=== PATIENT | male | born 1970 | race Caucasian/White ===

== ENCOUNTER 2018-01-06 09:55 | Day surgery (SDC) | payer OTHER ==
[2018-01-05 08:40] VITALS: BMI 35.2
[~2018-01-06 09:55] MED LIST: LACTATED RINGERS 1,000 ML IV SCH
[2018-01-06 11:43] VITALS: RESP 16; TEMP 97.5
[2018-01-06] MEDS ORDERED: LIDOCAINE 1% 20 ML VIAL (10MG/ML) FOR IV START INTRADERMA ONE (11:49)
[2018-01-06] MEDS ORDERED: LIDOCAINE 1% INJ 10MG/ML (20 ML MDV) ONE (12:08)
[2018-01-06] MEDS ORDERED: GLYCOPYRROLATE 0.2 MG/ML 2 ML VIAL ONE (12:08)
[2018-01-06] MEDS ORDERED: PROPOFOL 10 MG/ML 20 ML VIAL IV ONE (12:08)
--- NOTE | 2018-01-06 12:30 | P.PCN ---
Date of Procedure: 01/06/18 Procedure(s) Performed: Brief history: Patient is a pleasant 47-year-old white male, scheduled for an elective upper endoscopy as well as colonoscopy as a part of evaluation of gastric esophageal he for symptoms and intermittent rectal bleeding. Procedure performed: Esophagogastroduodenoscopy with biopsy Colonoscopy with snare polypectomy Preoperative diagnosis: GERD Intermittent rectal bleeding Anesthesia: [facility] Procedure: After informed consent was obtained from the patient was brought into the endoscopy unit and IV sedation was administered by anesthesia under continuous monitoring. Initially upper endoscopy was done. The Olympus GF 160 video endoscope was inserted inserted into the mouth and esophagus intubated without any difficulty and was gradually advanced into the stomach and duodenum and carefully examined. The bulb and second part of the duodenum appeared normal. The scope was then withdrawn into the stomach adequately insufflated with air and upon careful examination the antrum and body, cardia and fundus appeared normal. The scope was then withdrawn into the esophagus. Small hiatal hernia noted. The GE junction was located at 38 cm to the incisors. It appeared regular with no erythema erosions or ulcerations. Rest of the esophagus appeared normal. Patient tolerated the procedure well. At this time the patient continued to remain sedation. Initial digital rectal examination was normal. Olympus CF 160 video colonoscope was then inserted into the rectum and gradually advanced to the cecum without any difficulty. Careful examination was performed as the scope was gradually being withdrawn. The prep was excellent. The cecum, ascending colon, transverse colon, appeared normal. In the descending colon there was a 5 mm sessile polyp removed by snare polypectomy. In the sigmoid colon at 30 cm from the anal verge there was a 2.5-3 cm pedunculated polyp that was removed by snare polypectomy. In the proximal rectum there was a 1 minute polyp removed by snare polypectomy. Scattered small diverticula seen. Rest of the descending colon, sigmoid colon and rectum appeared normal. Retroflexion was performed in the rectum and no lesions were noted. Patient tolerated the procedure well. Impression: 1. Upper endoscopy revealed small hiatal hernia and antral gastritis. 2. Colonoscopy revealed: a) 5 mm sessile descending colon polyp status post polypectomy b) 2.5-3 cm pedunculated distal sigmoid colon polyp status post polypectomy c) 1 cm proximal rectal polyp serous was snare polypectomy d) sigmoid diverticulosis. Recommendations: Findings of this examination were discussed with the patient as well as his family. He was advised to follow with the biopsy results. If the biopsy results he will need to have a repeat surveillance colonoscopy in 2-3 years. He will continue with Nexium 20 mg daily and follow antireflux measures.
[2018-01-06 13:00] VITALS: BP 131/85; PULSE 62
== END 2018-01-06 13:16 | disposition home or self-care (01) ==
LOC: ORWHC2ENDO 09:55
PROVIDERS: ATTEND Internal Medicine Gastroenterology
DX: D12.5 Benign neoplasm of sigmoid colon (principal); D12.8 Benign neoplasm of rectum; K63.5 Polyp of colon; K29.50 Unspecified chronic gastritis without bleeding; K21.9 Gastro-esophageal reflux disease without esophagitis; K44.9 Diaphragmatic hernia without obstruction or gangrene; K57.30 Diverticulosis of large intestine without perforation or abscess without bleeding; F32.9 Major depressive disorder, single episode, unspecified; I10 Essential (primary) hypertension; Z79.899 Other long term (current) drug therapy; Z88.8 Allergy status to other drugs, medicaments and biological substances
CPT/HCPCS: 88305; 45385; 43239; J2001; J2704

== ENCOUNTER 2019-08-16 12:39 | Emergency (ER) | payer OTHER ==
[2019-08-16 12:52] VITALS: BP 133/88; PULSE 64; RESP 16; TEMP 97.8
--- NOTE | 2019-08-16 13:56 | ED ---
Headache HPI - General Chief Complaint: Headache Stated Complaint: HEAD PAIN Time Seen by Provider: 08/16/19 13:08 Mode of arrival: ambulatory Limitations: no limitations - History of Present Illness Initial Comments: Patient is a 48-year-old male presenting to the emergency Department with complaints of a headache that started this morning. Patient states he had an headache that was in the left side of his head that he waited approximately 4/10 this morning. Patient states he does have history of headaches and migraines. Patient states he does not currently have a headache now but still wanted to be checked. Patient states he took 2 aspirin which did alleviate his symptoms. Patient states he was concerned as he thought the headache had went into his left eye a bit. Patient denies fever, chills, blurry vision, weakness, numbness and tingling. He feels okay right now. Patient denies nausea, vomiting. Patient has no other complaints at this time. Upon arrival to ER, vital signs are stable. - Related Data Home Medications Medication Instructions Recorded Confirmed Lisinopril-Hctz 20-25 mg 1 tab PO DAILY 01/05/18 08/16/19 [Zestoretic 20-25] PARoxetine [Paxil] 20 mg PO DAILY 01/05/18 08/16/19 Albuterol Sulfate [Proair Hfa] 1 - 2 puff INHALATION RT-Q6H PRN 08/16/19 08/16/19 Testosterone Cypionate 200 mg IM Q14D 08/16/19 08/16/19 [Depo-Testosterone] Allergies Allergy/AdvReac Type Severity Reaction Status Date / Time diazepam [From Valium] AdvReac Hallucinati Verified 08/16/19 13:53 ons Review of Systems ROS Statement: Those systems with pertinent positive or pertinent negative responses have been documented in the HPI. ROS Other: All systems not noted in ROS Statement are negative. Past Medical History Past Medical History: Asthma, GERD/Reflux, Hypertension History of Any Multi-Drug Resistant Organisms: None Reported Past Surgical History: Appendectomy, Orthopedic Surgery Additional Past Surgical History / Comment(s): NASAL SURGERY, RIGHT HAND SURGERY-TENDON REPAIRED Past Anesthesia/Blood Transfusion Reactions: No Reported Reaction Past Psychological History: Anxiety, Depression Smoking Status: Former smoker Past Alcohol Use History: Occasional Past Drug Use History: None Reported - Past Family History Mother Family Medical History: No Reported History General Exam - General Exam Comments Initial Comments: GENERAL: Well-appearing, well-nourished and in no acute distress. HEAD: Atraumatic, normocephalic. EYES: Pupils equal round and reactive to light, extraocular movements intact, sclera anicteric, conjunctiva are normal. ENT: TMs normal, nares patent, oropharynx clear without exudates. Moist mucous membranes. NECK: Normal range of motion, supple without lymphadenopathy or JVD. LUNGS: Breath sounds clear to auscultation bilaterally and equal. No wheezes rales or rhonchi. HEART: Regular rate and rhythm without murmurs, rubs or gallops. ABDOMEN: Soft, nontender, normoactive bowel sounds. No guarding, no rebound. No masses appreciated. EXTREMITIES: Normal range of motion, no pitting or edema. No clubbing or cyanosis. NEUROLOGICAL: Cranial nerves II through XII grossly intact. Normal speech, normal gait. PSYCH: Normal mood, normal affect. SKIN: Warm, Dry, normal turgor, no rashes or lesions noted. Limitations: no limitations Course Vital Signs 08/16/19 12:48 Temperature 97.8 F Pulse Rate 64 Respiratory 16 Rate Blood Pressure 133/88 O2 Sat by Pulse 96 Oximetry Medical Decision Making - Medical Decision Making Patient is a 48-year-old male presenting with a headache that started this morning that is intermittent. Upon arrival to ER, headache is gone. Patient states he feels okay. Patient has history of headaches and migraines and usually takes Excedrin for them. Patient took aspirin earlier which did alleviate his symptoms. Patient's exam is unremarkable today. Vital signs are normal. Discussed with patient this is most likely a normal headache or migraine. Patient is stable for discharge at this time. She is in agreement and splenic care. Return parameters were discussed with the patient he verbalizes understanding. This discussed case with Dr. Yang. Disposition Clinical Impression: Headache Disposition: HOME SELF-CARE Condition: Stable Instructions (If sedation given, give patient instructions): Acute Headache (ED) Additional Instructions: Please return to the Emergency Department if symptoms worsen or any other concerns. Follow-up with PCP as needed. May take Excedrin if headache returns. Is patient prescribed a controlled substance at d/c from ED?: No Referrals: Joce Mukherjee MD [Primary Care Provider] - 1-2 days
== END 2019-08-16 14:29 | disposition home or self-care (01) ==
LOC: EC 12:39
DX: G43.909 Migraine, unspecified, not intractable, without status migrainosus (principal); K21.9 Gastro-esophageal reflux disease without esophagitis; I10 Essential (primary) hypertension; J45.909 Unspecified asthma, uncomplicated; F41.9 Anxiety disorder, unspecified; F32.9 Major depressive disorder, single episode, unspecified; Z79.51 Long term (current) use of inhaled steroids; Z79.899 Other long term (current) drug therapy; Z87.891 Personal history of nicotine dependence
CPT/HCPCS: 99283

== ENCOUNTER → 2020-05-30 | Outpatient (CLI) | payer OTHER ==
--- NOTE | 2020-05-30 09:44 | US ---
EXAMINATION TYPE: US scrotum with doppler. DATE OF EXAM: 05/30/2020 COMPARISON: NONE CLINICAL HISTORY: 49-year-old male N50 LT TESTICULAR PAIN. Left side pain. No swelling. TECHNIQUE: Grayscale and color Doppler Duplex imaging performed of the scrotum. FINDINGS: EXAM MEASUREMENTS: TESTICLES: Right Testicle: 3.0 x 3.8 x 1.6 cm Left Testicle: 3.5 x 3.5 x 1.6 cm EPIDIDYMIS HEAD: Right Epididymis: 0.7 x 0.8 x 1.0 cm Left Epididymis: 0.8 x 0.9 x 0.6 cm Doppler performed to assess for testicular vascularity; good bilateral color flow and waveforms are s een. There is no evidence of testicular torsion. Presence of hydroceles: no Presence of varicoceles: no There is mild thickening of the scrotal skin up to 6 mm. IMPRESSION: 1. Mild scrotal skin thickening up to 6 mm. This is nonspecific. Correlate with physical exam finding s. 2. No evidence for testicular torsion or epididymoorchitis. No hydrocele.
== END | disposition home or self-care (01) ==
LOC: RADUSWWP 08:02
PROVIDERS: ATTEND Internal Medicine
DX: N50.89 Other specified disorders of the male genital organs (principal); Z88.8 Allergy status to other drugs, medicaments and biological substances
CPT/HCPCS: 76870; 93975

== ENCOUNTER → 2021-04-15 | Outpatient (CLI) | payer BC ==
--- NOTE | 2021-04-15 07:54 | US ---
EXAMINATION TYPE: US liver DATE OF EXAM: 04/15/2021 COMPARISON: NONE CLINICAL HISTORY: R94.5 abn liver function test. Abnormal liver enzymes EXAM MEASUREMENTS: Liver Length: 16.5 cm Gallbladder Wall: 0.3 cm CBD: 0.3 cm Right Kidney: 11.0 x 5.2 x 5.2 cm Pancreas: Obscured by bowel gas Liver: slightly attenuating suggestive of mild fatty infiltration. Gallbladder: no evidence of stones Evidence for sonographic Gregory's sign: no CBD: appears wnl Right Kidney: no evidence of hydronephrosis IMPRESSION: 1. The pancreas is not visualized due to overlying bowel gas. 2. Mild diffuse fatty infiltration of the liver.
== END | disposition home or self-care (01) ==
LOC: RADUSWWP 06:58
PROVIDERS: ATTEND Internal Medicine
DX: K76.0 Fatty (change of) liver, not elsewhere classified (principal)
CPT/HCPCS: 76705

== ENCOUNTER 2021-05-15 07:03 | Emergency (ER) | payer BC ==
[2021-05-15 07:34] VITALS: TEMP 98.4
[2021-05-15] MEDS ORDERED: ONDANSETRON 4 MG/2 ML VIAL IVP STA (07:54)
[2021-05-15] MEDS ORDERED: SODIUM CHLORIDE 0.9% 1,000 ML IV ONE (07:54)
--- NOTE | 2021-05-15 08:13 | ED ---
General Adult HPI - General Chief complaint: Nausea/Vomiting/Diarrhea Stated complaint: Nausea, not feeling right Time Seen by Provider: 05/15/21 07:39 Source: patient, RN notes reviewed Mode of arrival: ambulatory Limitations: no limitations - History of Present Illness Initial comments: 50-year-old male presents emergency from chief complaint of nausea. Patient states that he was started on azithromycin lasted for dental infection. Over the last few days she's had a stomach. He states he may be dehydrated no chest pain or shortness breath no symptoms and diarrhea. Patient states she is scheduled for oral surgery appointment next month. Patient denies any dysuria hematuria no other complaints. - Related Data Home Medications Medication Instructions Recorded Confirmed Lisinopril-Hctz 20-25 mg 1 tab PO DAILY 01/05/18 08/16/19 [Zestoretic 20-25] PARoxetine [Paxil] 20 mg PO DAILY 01/05/18 08/16/19 Albuterol Sulfate [Proair Hfa] 1 - 2 puff INHALATION RT-Q6H PRN 08/16/19 08/16/19 Testosterone Cypionate 200 mg IM Q14D 08/16/19 08/16/19 [Depo-Testosterone] Previous Rx's Medication Instructions Recorded Famotidine [Pepcid] 20 mg PO BID #14 tablet 05/15/21 Ondansetron Odt [Zofran Odt] 4 mg PO Q8HR PRN #10 tab 05/15/21 Penicillin V Potassium [Pen Vee K] 500 mg PO QID #28 tablet 05/15/21 Allergies Allergy/AdvReac Type Severity Reaction Status Date / Time diazepam [From Valium] AdvReac Hallucinati Verified 05/15/21 07:31 ons Review of Systems ROS Statement: Those systems with pertinent positive or pertinent negative responses have been documented in the HPI. ROS Other: All systems not noted in ROS Statement are negative. Past Medical History Past Medical History: Asthma, GERD/Reflux, Hypertension History of Any Multi-Drug Resistant Organisms: None Reported Past Surgical History: Appendectomy, Orthopedic Surgery Additional Past Surgical History / Comment(s): NASAL SURGERY, RIGHT HAND SURGERY-TENDON REPAIRED Past Anesthesia/Blood Transfusion Reactions: No Reported Reaction Past Psychological History: Anxiety, Depression Smoking Status: Former smoker Past Alcohol Use History: Occasional Past Drug Use History: None Reported - Past Family History Mother Family Medical History: No Reported History General Exam Limitations: no limitations General appearance: alert, in no apparent distress Head exam: Present: atraumatic, normocephalic, normal inspection Eye exam: Present: normal appearance, PERRL, EOMI. Absent: scleral icterus, conjunctival injection, periorbital swelling ENT exam: Present: normal exam, normal oropharynx, mucous membranes moist Neck exam: Present: normal inspection, full ROM. Absent: tenderness, meningismus, lymphadenopathy Respiratory exam: Present: normal lung sounds bilaterally. Absent: respiratory distress, wheezes, rales, rhonchi, stridor Cardiovascular Exam: Present: regular rate, normal rhythm, normal heart sounds. Absent: systolic murmur, diastolic murmur, rubs, gallop, clicks GI/Abdominal exam: Present: soft, normal bowel sounds. Absent: distended, tenderness, guarding, rebound, rigid Course Vital Signs 05/15/21 07:30 Temperature 98.4 F Pulse Rate 72 Respiratory 16 Rate Blood Pressure 163/79 O2 Sat by Pulse 94 L Oximetry Medical Decision Making - Medical Decision Making Patient presented for nausea after antibiotics, some dental pain. Patient feels improved after antiemetics and fluids. Patient was likely a mild GI upset from azithromycin. Patient will be given penicillin, Zofran return parameters were discussed. - Lab Data Result diagrams: 05/15/21 07:57 05/15/21 07:57 Lab Results 05/15/21 05/15/21 Range/Units 07:57 07:57 WBC 4.6 (3.8-10.6) k/uL RBC 5.64 (4.30-5.90) m/uL Hgb 17.9 H (13.0-17.5) gm/dL Hct 53.6 H (39.0-53.0) % MCV 95.0 (80.0-100.0) fL MCH 31.7 (25.0-35.0) pg MCHC 33.3 (31.0-37.0) g/dL RDW 14.7 (11.5-15.5) % Plt Count 181 (150-450) k/uL MPV 7.9 Neutrophils % 68 % Lymphocytes % 19 % Monocytes % 7 % Eosinophils % 1 % Basophils % 2 % Neutrophils # 3.1 (1.3-7.7) k/uL Lymphocytes # 0.9 L (1.0-4.8) k/uL Monocytes # 0.3 (0-1.0) k/uL Eosinophils # 0.0 (0-0.7) k/uL Basophils # 0.1 (0-0.2) k/uL Sodium 135 L (137-145) mmol/L Potassium 3.9 (3.5-5.1) mmol/L Chloride 100 (98-107) mmol/L Carbon Dioxide 26 (22-30) mmol/L Anion Gap 9 mmol/L BUN 20 (9-20) mg/dL Creatinine 0.96 (0.66-1.25) mg/dL Est GFR (CKD-EPI)AfAm >90 (>60 ml/min/1.73 sqM) Est GFR (CKD-EPI)NonAf >90 (>60 ml/min/1.73 sqM) Glucose 171 H (74-99) mg/dL Calcium 10.3 H (8.4-10.2) mg/dL Total Bilirubin 1.1 (0.2-1.3) mg/dL AST 36 (17-59) U/L ALT 25 (4-49) U/L Alkaline Phosphatase 73 (38-126) U/L Total Protein 7.5 (6.3-8.2) g/dL Albumin 4.6 (3.5-5.0) g/dL Disposition Clinical Impression: Nausea, Dental infection Disposition: HOME SELF-CARE Condition: Stable Instructions (If sedation given, give patient instructions): Acute Nausea and Vomiting (ED) Additional Instructions: Please return to the Emergency Department if symptoms worsen or any other concerns. Prescriptions: Penicillin V Potassium [Pen Vee K] 500 mg PO QID #28 tablet Famotidine [Pepcid] 20 mg PO BID #14 tablet Ondansetron Odt [Zofran Odt] 4 mg PO Q8HR PRN #10 tab PRN Reason: Nausea Is patient prescribed a controlled substance at d/c from ED?: No Referrals: Joce Mukherjee MD [Primary Care Provider] - 1-2 days Time of Disposition: 09:10
[2021-05-15 08:34] LABS: ALT 25 U/L (4-49); AST 36 U/L (17-59); African American GFR (CKD) >90 (>60 ml/min/1.73 sqM); Albumin 4.6 g/dL (3.5-5.0); Alkaline Phosphatase 73 U/L (38-126); Anion Gap 9 mmol/L; Blood Urea Nitrogen 20 mg/dL (9-20); Calcium 10.3 mg/dL (8.4-10.2); Carbon Dioxide 26 mmol/L (22-30); Chloride 100 mmol/L (98-107); Glucose 171 mg/dL (74-99); Non-African American GFR(CKD) >90 (>60 ml/min/1.73 sqM); Potassium 3.9 mmol/L (3.5-5.1); Sodium 135 mmol/L (137-145); Total Bilirubin 1.1 mg/dL (0.2-1.3); Total Protein 7.5 g/dL (6.3-8.2)
[2021-05-15 08:58] LABS: Basophils # (A) 0.1 k/uL (0-0.2); Basophils % (A) 2 %; Eosinophils % (A) 1 %; HCT 53.6 % (39.0-53.0); HGB 17.9 gm/dL (13.0-17.5); Lymphocytes # (A) 0.9 k/uL (1.0-4.8); Lymphocytes % (A) 19 %; MCH 31.7 pg (25.0-35.0); MCHC 33.3 g/dL (31.0-37.0); Mean Platelet Volume 7.9; Monocytes # (A) 0.3 k/uL (0-1.0); Monocytes % (A) 7 %; Neutrophils # (A) 3.1 k/uL (1.3-7.7); Neutrophils % (A) 68 %; Platelet Count 181 k/uL (150-450); RBC 5.64 m/uL (4.30-5.90); RDW 14.7 % (11.5-15.5); WBC 4.6 k/uL (3.8-10.6)
[2021-05-15 09:41] VITALS: BP 141/86; PULSE 78; RESP 18
== END 2021-05-15 09:39 | disposition home or self-care (01) ==
LOC: EC 07:03
DX: R11.0 Nausea (principal); K04.7 Periapical abscess without sinus; I10 Essential (primary) hypertension; J45.909 Unspecified asthma, uncomplicated; K21.9 Gastro-esophageal reflux disease without esophagitis; Z79.51 Long term (current) use of inhaled steroids; Z79.899 Other long term (current) drug therapy; Z87.891 Personal history of nicotine dependence
CPT/HCPCS: 36415; 80053; 85025; 99283; 96374; 96361; J2405

== ENCOUNTER 2022-09-04 12:43 | Inpatient (IN) | payer BC ==
--- NOTE | 2022-09-04 13:43 | ED ---
General Adult HPI - General Chief complaint: Psychiatric Symptoms Stated complaint: Mental health Time Seen by Provider: 09/04/22 13:18 Source: patient, RN notes reviewed, old records reviewed Mode of arrival: ambulatory - History of Present Illness Initial comments: Patient is a 52-year-old male with past medical history remarkable for hypertension who presents emergency Department complaining of suicidal ideation. He does have a history of this mildly, however states today it seems to be more severe. Was sent in by PCP for psychiatric evaluation. Has been in counseling since his 2 years ago. States he does have a history of depression. Counseling does seem to help however today for some reason he started having worsening suicidal ideations. Denies any plans or attempts. Denies homicidal ideations, plans, attempts. Denies visual or auditory hallucinations. Denies any alcohol or drug use. Has no other acute complaints at this time. Presents for psychiatric eval. He is cooperative. - Related Data Home Medications Medication Instructions Recorded Confirmed Lisinopril-Hctz 20-25 mg 1 tab PO DAILY@0400 01/05/18 09/04/22 [Zestoretic 20-25] PARoxetine [Paxil] 20 mg PO BID@0400,1800 01/05/18 09/04/22 Ascorbic Acid [Vitamin C] 1,000 mg PO DAILY@0400 09/04/22 09/04/22 Esomeprazole Magnesium [NexIUM 20 mg PO DAILY@0400 09/04/22 09/04/22 24Hr] Multivit-Min/FA/Lycopen/Lutein 1 tab PO DAILY@0400 09/04/22 09/04/22 [Centrum Silver Tablet] Allergies Allergy/AdvReac Type Severity Reaction Status Date / Time diazepam [From Valium] AdvReac Hallucinati Verified 09/04/22 17:02 ons Review of Systems ROS Statement: Those systems with pertinent positive or pertinent negative responses have been documented in the HPI. Review of Systems: CONST: Denies fever EYES: Denies blurry vision ENT: Denies nasal congestion C/V: Denies Chest pain RESP: Denies shortness of breath GI: Denies abdominal pain : Denies dysuria SKIN: Denies rash. MSK: Denies joint pain. NEURO: Denies headache PSYCH: Denies homicidal ideations/plans/attempts. Denies visual or auditory hallucinations. He endorses suicidal ideations. Denies plans or attempts. ROS Other: All systems not noted in ROS Statement are negative. Past Medical History Past Medical History: Asthma, GERD/Reflux, Hypertension History of Any Multi-Drug Resistant Organisms: None Reported Past Surgical History: Appendectomy, Hernia Repair, Orthopedic Surgery Additional Past Surgical History / Comment(s): NASAL SURGERY, RIGHT HAND SURGERY-TENDON REPAIRED Past Anesthesia/Blood Transfusion Reactions: No Reported Reaction Past Psychological History: Anxiety, Depression Smoking Status: Former smoker Past Alcohol Use History: Occasional Past Drug Use History: None Reported - Past Family History Mother Family Medical History: No Reported History General Exam - General Exam Comments Initial Comments: General: Appears in no acute distress. HEAD: Normal with no signs of head trauma. EYES: PERRLA, EOMI, conjunctiva normal, no discharge. ENT: Hearing grossly intact, normal oropharynx. RESPIRATORY: Clear breath sounds bilaterally. No wheezes, rales, or rhonchi. C/V: Regular rate and rhythm. S1 and S2 auscultated, no edema, peripheral pulses 2+ and intact throughout ABD: Abd is soft, nontender, nondistended EXT: Normal range of motion, no obvious deformity SKIN: No rashes or lesions observed on exposed skin. NEURO: Alert and oriented 4. No focal deficits. Course Vital Signs 09/04/22 09/04/22 13:05 15:55 Temperature 97.5 F L 98.0 F Pulse Rate 71 54 L Respiratory 18 17 Rate Blood Pressure 143/76 145/89 O2 Sat by Pulse 97 96 Oximetry Medical Decision Making - Medical Decision Making Based on the patient's presentation and physical exam, I do believe that the patient requires psychiatric evaluation. He was placing green scrubs. Suicide precautions ordered. Severe ordered. Vital signs within except for limits. BAT is 0. UDS is pending. At this time patient is medically cleared for evaluation by psychiatry. Disposition is pending psychiatric evaluation. EPS was notified. Psychiatry evaluated the patient and determines that he does meet criteria for admission. Patient will be admitted to inpatient psychiatry in stable condition. - Lab Data Lab Results 09/04/22 09/04/22 Range/Units 13:41 16:29 Urine Opiates Screen Not Detected (NotDetected) Ur Oxycodone Screen Not Detected (NotDetected) Urine Methadone Screen Not Detected (NotDetected) Ur Propoxyphene Screen Not Detected (NotDetected) Ur Barbiturates Screen Not Detected (NotDetected) U Tricyclic Antidepress Not Detected (NotDetected) Ur Phencyclidine Scrn Not Detected (NotDetected) Ur Amphetamines Screen Not Detected (NotDetected) U Methamphetamines Scrn Not Detected (NotDetected) U Benzodiazepines Scrn Not Detected (NotDetected) Urine Cocaine Screen Not Detected (NotDetected) U Marijuana (THC) Screen Not Detected (NotDetected) Coronavirus (PCR) Not Detected (Not Detectd) Disposition Clinical Impression: Encounter for psychiatric assessment, Suicidal ideation Disposition: ADMITTED IP TO THIS [facility] Condition: Stable Referrals: Joce Mukherjee MD [Primary Care Provider] - 1-2 days
[2022-09-04 14:24] LABS: Cocaine Screen,Urine Not Detected (NotDetected); Phencyclidine Screen,Urine Not Detected (NotDetected); Urn Cannabinoid Scrn Not Detected (NotDetected)
[2022-09-04 14:25] LABS: Amphetamine Screen,Urine Not Detected (NotDetected); Barbiturate Screen,Urine Not Detected (NotDetected); Benzodiazepines Screen,Urine Not Detected (NotDetected); Methadone Screen, Urine Not Detected (NotDetected); Opiate Screen,Urine Not Detected (NotDetected); Oxycodone Screen, Urine Not Detected (NotDetected); Tricyclic Antidepressant,Urine Not Detected (NotDetected)
[2022-09-04] MEDS ORDERED: PARoxetine 20 MG TAB PO SCH (18:00)
[2022-09-04] MEDS ORDERED: OLANZapine 5 MG TAB PO PRN (20:58)
[2022-09-04] MEDS ORDERED: MAGNESIUM HYDROXIDE 2,400 MG/10 ML CUP PO PRN (20:58)
[2022-09-04] MEDS ORDERED: hydrOXYzine HCL 50 MG/ML 1 ML VIAL IM PRN (20:58)
[2022-09-04] MEDS ORDERED: hydrOXYzine pamoate 25 MG CAP PO PRN (20:58)
[2022-09-04] MEDS ORDERED: OLANZapine 10 MG VIAL IM PRN (20:58)
[2022-09-04] MEDS ORDERED: MAG HYDROX/AL HYDROX/SIMETH 355 ML BOTTLE PO PRN (20:58)
[2022-09-04] MEDS ORDERED: ACETAMINOPHEN TAB 325 MG TAB PO PRN (20:58)
[2022-09-05] MEDS ORDERED: PANTOPRAZOLE 40 MG TABLET PO SCH (04:00)
[2022-09-05] MEDS ORDERED: MULTIVITAMINS, THERA 1 EACH TAB PO SCH (04:00)
[2022-09-05] MEDS ORDERED: LISINOPRIL-HCTZ 20-25 MG 1 EACH TAB PO SCH (04:00)
[2022-09-05] MEDS ORDERED: ASCORBIC ACID 500 MG TAB PO SCH (04:00)
[2022-09-05 07:15] LABS: HCT 45.9 % (39.0-53.0); MCH 33.7 pg (25.0-35.0); MCHC 34.8 g/dL (31.0-37.0); Mean Platelet Volume 7.1; Platelet Count 144 k/uL (150-450); RBC 4.73 m/uL (4.30-5.90); RDW 12.4 % (11.5-15.5); WBC 3.8 k/uL (3.8-10.6)
[2022-09-05 07:27] LABS: ALT 57 U/L (4-49); AST 48 U/L (17-59); African American GFR (CKD) >90 (>60 ml/min/1.73 sqM); Albumin 4.3 g/dL (3.5-5.0); Alkaline Phosphatase 55 U/L (38-126); Anion Gap 6 mmol/L; Bilirubin, Delta 0.3 mg/dL (0.0-0.2); Bilirubin,Unconjugated 0.6 mg/dL (0.0-1.1); Blood Urea Nitrogen 22 mg/dL (9-20); Calcium 9.1 mg/dL (8.4-10.2); Carbon Dioxide 31 mmol/L (22-30); Chloride 103 mmol/L (98-107); Glucose 118 mg/dL (74-99); Non-African American GFR(CKD) >90 (>60 ml/min/1.73 sqM); Potassium 4.1 mmol/L (3.5-5.1); Sodium 140 mmol/L (137-145); Total Bilirubin 0.9 mg/dL (0.2-1.3); Total Protein 6.7 g/dL (6.3-8.2)
[2022-09-05] MEDS ORDERED: PARoxetine 20 MG TAB PO SCH (07:30)
[2022-09-05] MEDS: NICOTINE 14MG/24HR PATCH TRANSDERM SCH (08:18)
[2022-09-05] MEDS: ASCORBIC ACID 500 MG TAB PO SCH (08:19)
[2022-09-05] MEDS: LISINOPRIL-HCTZ 20-25 MG 1 EACH TAB PO SCH (08:19)
[2022-09-05] MEDS: MULTIVITAMINS, THERA 1 EACH TAB PO SCH (08:19)
[2022-09-05] MEDS: PANTOPRAZOLE 40 MG TABLET PO SCH (08:19)
[2022-09-05 09:28] LABS: Eosinophils # (M) 0.08 k/uL (0-0.7); Monocytes # (M) 0.38 k/uL (0-1.0); Neutrophils # (M) 2.24 k/uL (1.3-7.7); Neutrophils % (M) 59 %; Nucleated Red Blood Cells 0 /100 WBC (0-0); Total Cells Counted 100
[2022-09-05 09:38] LABS: RBC Morphology Normal
--- NOTE | 2022-09-05 14:17 | P.CONS ---
History of Present Illness - Reason for Consult Consult date: 09/05/22 Requesting physician: Trey Alejo - History of Present Illness This is a 52-year-old male with medical history significant for asthma, gastroesophageal reflux disease, hypertension, anxiety/depression, former smoker. He presents to the emergency room yesterday afternoon with suicidal ideation. Patient does have history of this however today he states this seems to be more severe, he states he had a nervous breakdown at work. 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 Patient's 2 years ago and he has been in counseling since. He states he has been managing well and is maintained on paxil twice a day. He has 2 adult daughters that are biological to his late . He states he has raised them since , both currently live out of state. He is close with his mother and visits with her regularly. He currently denies any plans or attempts denies homicidal ideations or plans or attempts denies any visual or auditory hallucinations. He was recommended for inpatient psychiatric evaluation. He currently would like to be discharged, states he has no plans and wouldn't follow through with suicidal thoughts. He thinks this may be situational due to the holidays coming up. Platelet count is at 144, sodium 140, potassium 4.1, BUN 22, creatinine 0.8, blood glucose of 118, ALT is mildly elevated at 57. Lipid panel is currently pending. Drug toxicology is negative, covid is negative. TSH 0.598. She is afebrile, heart rate is 60 normal sinus rhythm, blood pressure 154/89, 97% on room air. REVIEW OF SYSTEMS: CONSTITUTIONAL: No fever, no malaise, no fatigue. HEENT: No recent visual problems or hearing problems. Denied any sore throat. CARDIOVASCULAR: No chest pain, orthopnea, PND, no palpitations, no syncope. PULMONARY: No shortness of breath, no cough, no hemoptysis. GASTROINTESTINAL: No diarrhea, no nausea, no vomiting, no abdominal pain. NEUROLOGICAL: No headaches, no weakness, no numbness. HEMATOLOGICAL: Denies any bleeding or petechiae. GENITOURINARY: Denies any burning micturition, frequency, or urgency. MUSCULOSKELETAL/RHEUMATOLOGICAL: Denies any joint pain, swelling, or any muscle pain. ENDOCRINE: Denies any polyuria or polydipsia. The rest of the 14-point review of systems is negative. PHYSICAL EXAMINATION: GENERAL: The patient is alert and oriented x3, not in any acute distress. Well developed, well nourished. HEENT: Pupils are round and equally reacting to light. EOMI. No scleral icterus. No conjunctival pallor. Normocephalic, atraumatic. No pharyngeal erythema. No thyromegaly. CARDIOVASCULAR: S1 and S2 present. No murmurs, rubs, or gallops. PULMONARY: Chest is clear to auscultation, no wheezing or crackles. ABDOMEN: Soft, nontender, nondistended, normoactive bowel sounds. No palpable organomegaly. MUSCULOSKELETAL: No joint swelling or deformity. EXTREMITIES: No cyanosis, clubbing, or pedal edema. NEUROLOGICAL: Gross neurological examination did not reveal any focal deficits. SKIN: No rashes. Assessment and plan Assessment Suicidal Ideation Anxiety/Depression Hypertension History asthma without acute exacerbation GERD Former smoker GI Prophylaxis DVT Prophylaxis early ambulation Full Code Plan Resume home medications including PPI, lisinopril/hydrochlorothiazide/paxil Labs reviewed Lipid panel pending Continue supportive care Resumed on paxil Thank you for this consultation The impression and plan of care has been dictated by Nurse Jose Juan Momin as directed. Dr. Guero MD I have performed a history and physical examination and medical decision making of this patient, discussed the same with the dictator, and agree with the dictat ors assessment and plan as written, documented as a scribe. Based on total visit time, I have performed more than 50% of this visit. Past Medical History Past Medical History: Asthma, GERD/Reflux, Hypertension History of Any Multi-Drug Resistant Organisms: None Reported Past Surgical History: Appendectomy, Hernia Repair, Orthopedic Surgery Additional Past Surgical History / Comment(s): NASAL SURGERY, RIGHT HAND SURGERY-TENDON REPAIRED Past Anesthesia/Blood Transfusion Reactions: No Reported Reaction Past Psychological History: Anxiety, Depression Smoking Status: Never smoker Past Alcohol Use History: Occasional Additional Past Alcohol Use History / Comment(s): STARTED SMOKING AT AGE 15 QUIT SMOKING 2014 SMOKED 1PPD Past Drug Use History: None Reported - Past Family History Mother Family Medical History: No Reported History Medications and Allergies Home Medications Medication Instructions Recorded Confirmed Type Lisinopril-Hctz 20-25 mg 1 tab PO DAILY@0400 01/05/18 09/04/22 History [Zestoretic 20-25] PARoxetine [Paxil] 20 mg PO BID@0400,1800 01/05/18 09/04/22 History Ascorbic Acid [Vitamin C] 1,000 mg PO DAILY@0400 09/04/22 09/04/22 History Esomeprazole Magnesium [NexIUM 20 mg PO DAILY@0400 09/04/22 09/04/22 History 24Hr] Multivit-Min/FA/Lycopen/Lutein 1 tab PO DAILY@0400 09/04/22 09/04/22 History [Centrum Silver Tablet] Allergies Allergy/AdvReac Type Severity Reaction Status Date / Time diazepam [From Valium] AdvReac Hallucinati Verified 09/04/22 17:02 ons Physical Exam Vitals: Vital Signs Temp Pulse Pulse Resp BP BP Pulse Ox 09/04/22 22:23 97.1 F L 60 18 154/89 97 09/04/22 15:55 98.0 F 54 L 17 145/89 96 09/04/22 13:05 97.5 F L 71 18 143/76 97 Intake and Output 09/04/22 09/05/22 09/05/22 22:59 06:59 14:59 Other: Weight 88.4 kg Results CBC & Chem 7: 09/05/22 06:54 09/05/22 06:54 Labs: Abnormal Lab Results - Last 24 Hours (Table) 09/05/22 09/05/22 Range/Units 06:54 06:54 Plt Count 144 L (150-450) k/uL Carbon Dioxide 31 H (22-30) mmol/L BUN 22 H (9-20) mg/dL Glucose 118 H (74-99) mg/dL Delta Bilirubin 0.3 H (0.0-0.2) mg/dL ALT 57 H (4-49) U/L Assessment and Plan Time with Patient: Less than 30
--- NOTE | 2022-09-05 14:31 | P.HP ---
Psychiatric H&P - . H&P Date: 09/05/22 History & Physical: Allergies Allergy/AdvReac Type Severity Reaction Status Date / Time diazepam From Valium AdvReac Hallucinati Verified 09/04/22 17:02 ons Vital Signs Temp 98.0 F 09/05/22 10:57 Pulse 65 09/05/22 10:57 Resp 18 09/05/22 10:57 BP 131/79 09/05/22 10:57 Pulse Ox 97 09/04/22 22:23 FiO2 Intake & Output 09/04/22 09/05/22 09/05/22 18:59 06:59 18:59 Weight 90.718 kg 88.4 kg Laboratory Last Values WBC 3.8 k/uL (3.8-10.6) 09/05/22 06:54 RBC 4.73 m/uL (4.30-5.90) 09/05/22 06:54 Hgb 16.0 gm/dL (13.0-17.5) 09/05/22 06:54 Hct 45.9 % (39.0-53.0) 09/05/22 06:54 MCV 97.0 fL (80.0-100.0) 09/05/22 06:54 MCH 33.7 pg (25.0-35.0) 09/05/22 06:54 MCHC 34.8 g/dL (31.0-37.0) 09/05/22 06:54 RDW 12.4 % (11.5-15.5) 09/05/22 06:54 Plt Count 144 k/uL (150-450) L 09/05/22 06:54 MPV 7.1 09/05/22 06:54 Neutrophils % (Manual) 59 % 09/05/22 06:54 Lymphocytes % (Manual) 29 % 09/05/22 06:54 Monocytes % (Manual) 10 % 09/05/22 06:54 Eosinophils % (Manual) 2 % 09/05/22 06:54 Neutrophils # (Manual) 2.24 k/uL (1.3-7.7) 09/05/22 06:54 Lymphocytes # (Manual) 1.10 k/uL (1.0-4.8) 09/05/22 06:54 Monocytes # (Manual) 0.38 k/uL (0-1.0) 09/05/22 06:54 Eosinophils # (Manual) 0.08 k/uL (0-0.7) 09/05/22 06:54 Nucleated RBCs 0 /100 WBC (0-0) 09/05/22 06:54 Manual Slide Review Performed 09/05/22 06:54 RBC Morphology Normal 09/05/22 06:54 Sodium 140 mmol/L (137-145) 09/05/22 06:54 Potassium 4.1 mmol/L (3.5-5.1) 09/05/22 06:54 Chloride 103 mmol/L (98-107) 09/05/22 06:54 Carbon Dioxide 31 mmol/L (22-30) H 09/05/22 06:54 Anion Gap 6 mmol/L 09/05/22 06:54 BUN 22 mg/dL (9-20) H 09/05/22 06:54 Creatinine 0.88 mg/dL (0.66-1.25) 09/05/22 06:54 Est GFR (CKD-EPI)AfAm >90 (>60 ml/min/1.73 sqM) 09/05/22 06:54 Est GFR (CKD-EPI)NonAf >90 (>60 ml/min/1.73 sqM) 09/05/22 06:54 Glucose 118 mg/dL (74-99) H 09/05/22 06:[address] Glu mg/dL 124 09/05/22 06:54 Hemoglobin A1c 5.9 % (0.0-6.0) 09/05/22 06:54 Calcium 9.1 mg/dL (8.4-10.2) 09/05/22 06:54 Total Bilirubin 0.9 mg/dL (0.2-1.3) 09/05/22 06:54 Conjugated Bilirubin 0.0 mg/dL (0.0-0.3) 09/05/22 06:54 Unconjugated Bilirubin 0.6 mg/dL (0.0-1.1) 09/05/22 06:54 Delta Bilirubin 0.3 mg/dL (0.0-0.2) H 09/05/22 06:54 AST 48 U/L (17-59) 09/05/22 06:54 ALT 57 U/L (4-49) H 09/05/22 06:54 Alkaline Phosphatase 55 U/L (38-126) 09/05/22 06:54 Total Protein 6.7 g/dL (6.3-8.2) 09/05/22 06:54 Albumin 4.3 g/dL (3.5-5.0) 09/05/22 06:54 TSH 0.598 mIU/L (0.465-4.680) 09/05/22 06:54 Urine Opiates Screen Not Detected (NotDetected) 09/04/22 13:41 Ur Oxycodone Screen Not Detected (NotDetected) 09/04/22 13:41 Urine Methadone Screen Not Detected (NotDetected) 09/04/22 13:41 Ur Propoxyphene Screen Not Detected (NotDetected) 09/04/22 13:41 Ur Barbiturates Screen Not Detected (NotDetected) 09/04/22 13:41 U Tricyclic Antidepress Not Detected (NotDetected) 09/04/22 13:41 Ur Phencyclidine Scrn Not Detected (NotDetected) 09/04/22 13:41 Ur Amphetamines Screen Not Detected (NotDetected) 09/04/22 13:41 U Methamphetamines Scrn Not Detected (NotDetected) 09/04/22 13:41 U Benzodiazepines Scrn Not Detected (NotDetected) 09/04/22 13:41 Urine Cocaine Screen Not Detected (NotDetected) 09/04/22 13:41 U Marijuana (THC) Screen Not Detected (NotDetected) 09/04/22 13:41 Coronavirus (PCR) Not Detected (Not Detectd) 09/04/22 16:29 09/05/22 14:02 IDENTIFYING DATA: Patient is a 52-year-old male, 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 HPI: Patient presented to the hospital yesterday sent by his PCP Dr. Carlos. Patient was assessed in the ER and was noted to have suicidal thoughts that were increasing in severity and also depression recently. Patient does have a history of depression. Patient claimed in the ER that his about 2 years ago. His UDS was negative. Patient was admitted voluntarily mental health unit. Patient is on Paxil currently since 2003 he states. He states that he vital through cancer on his for quite some time and claims that she from both cancer and covid. He states that this occurred 2 years ago and states that the anniversary of her was a few days ago. He states that he was having suicidal thoughts that were more severe. He claims that he does feel loneliness, hopelessness and also depression. He also claims that he is feeling anxious. He states that he is "tired of the negativity in the world" and claims that "sometimes ask God to teach me". He states that his sleep is then fair and appetite is been on and off. He has been fairly compliant with his Paxil. Patient denies any current suicidal or homicidal ideations intent or plan. At this time patient denies any auditory or visual hallucinations. Patient denies any flight of ideas racing thoughts and increased in goal directed behavior. Patient admits to using now recreational drugs or cigarettes. Drinks occasional alcohol. PAST PSYCHIATRIC HISTORY: Patient states that he has a history of depression and anxiety. Patient is currently on Paxil twice a day. Patient denies any previous psychiatric hospitalizations. He states that he is not seeing a psychiatrist at this time however states that he does have a therapist that works at [employer]. Patient denies any history of suicide attempts in the past. Past Medical History: Asthma, GERD/Reflux, Hypertension History of Any Multi-Drug Resistant Organisms: None Reported ALLERGIES: as per EMR CHEMICAL DEPENDENCY HISTORY: as per HPI FAMILY PSYCHIATRIC/SUBSTANCE USE HISTORY: denies SOCIAL HISTORY: Patient was born and raised in [place]. He states that he completed high school. 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 He has 2 kids. He is currently at this time. He states that he is never been to skilled nursing or [facility]ci MENTAL STATUS EXAM: General Appearance: Patient appears to be short in stature, overweight, wearing glasses, stated age is alert, directable, and attempts to cooperate. Patient appears to have fair hygiene and grooming. Behavior: Patient is seated without any agitated behavior. Attempts to cooperate. Upset at times. Speech: Patient's speech is fluent and nonpressured. Hesitant Mood/Affect: Patient reports their mood is depressed and anxious, affect is congruent and constricted. Suicidality/Homicidality: Patient denies having any homicidal ideation intent or plan. Denies any suicidal ideations intent or plan Perceptions: Patient denies any visual hallucinations and denies any auditory hallucinations Though content/process: There is no evidence of any delusional thought content and thought process is linear and goal-directed. Focus on discharge. Memory and concentration: AOX3, grossly intact for the purposes of this session. Can spell "WORLD" backwards Judgment and insight: poor STRENGTHS/WEAKNESSES: strength is that patient is resilient. Weakness is that patient has poor judgment and poor social support INTELLECT: average IMPRESSIONS: Major depressive disorder, without psychotic features Anxiety disorder unspecified PLAN: -Patient is admitted under voluntary status to MHU for stabilization of psychiatric symptoms and safety. Patient has signed adult voluntary form and medication consent and is placed in patient's chart. -Medications : Will start patient on Zoloft 50 mg daily for mood/anxiety, increase as tolerated/needed over the weekend. Discontinue Paxil. Add melatonin 6 mg daily at bedtime for sleep. -Ativan and Haldol PRN for agitation/aggression -Patient was informed of the risks, benefits and side effects of the medication and patient verbally consented to taking the medications. Patient signed med consent form and was placed in chart. -Internal Medicine consult to perform medical evaluation and physical. -NRT - not needed as patient does not smoke -SW on board for discharge planning. Encourage patient to participate in groups to work on coping skills. The patient continues to improve over the weekend and likely discharge Thursday. patient does have a gun at home. 09/05/22 14:26
[2022-09-05 15:01] LABS: Chol/HDL Ratio 2.85 Ratio; LDL Cholesterol,Calculated 97.6 mg/dL (0.0-131.0)
[2022-09-05] MEDS ORDERED: DULoxetine HCL 30 MG CAPSULE.DR PO SCH (21:00)
[2022-09-05] MEDS ORDERED: MELATONIN 3 MG TABLET PO SCH (21:00)
[2022-09-06 06:54] VITALS: RESP 16
[2022-09-06] MEDS: ASCORBIC ACID 500 MG TAB PO SCH (08:32)
[2022-09-06] MEDS: LISINOPRIL-HCTZ 20-25 MG 1 EACH TAB PO SCH (08:32)
[2022-09-06] MEDS: PANTOPRAZOLE 40 MG TABLET PO SCH (08:32)
[2022-09-06] MEDS: MULTIVITAMINS, THERA 1 EACH TAB PO SCH (08:32)
[2022-09-06] MEDS: NICOTINE 14MG/24HR PATCH TRANSDERM SCH (08:33)
[2022-09-06] MEDS: SERTRALINE 50 MG TAB PO SCH (08:33)
--- NOTE | 2022-09-06 16:45 | P.PN ---
Progress Note - Text Progress Note Date: 09/06/22 Interval History: Patient was seen in the interview room and was directable and agreeable to speak with conventional underwriter in the office. He is hyperverbal as he states that he has been feeling slightly better with the medications. He discussed several negative aspects of his life including his 's . He reports that he has been feeling better emotionally and would like to move on and find a new partner. He is more future oriented and is interested in returning back to work. At this time patient denies any suicidal or homical ideations, intent or plan. Patient denies any auditory, visual hallucinations and denies any paranoia or delusions. He states that he has been having intermittent anxiety since starting Zoloft. Discussed that this can occur transiently and should decrease as he becomes used to the medication. He also reports being sedated into the next day on melatonin and he is interested in decreasing the dose. Patient denies other side effects from the medications and has been compliant with meds. Mental Status Exam: General Appearance: Patient appears to be short in stature, overweight, wearing glasses, stated age is alert, directable, and attempts to cooperate. Patient appears to have fair hygiene and grooming. Behavior: Patient is seated without any agitated behavior. Attempts to cooperate. Speech: Patient's speech is fluent and hyperverbal Mood/Affect: Patient reports their mood is depressed and anxious, affect is congruent and tearful at times Suicidality/Homicidality: Patient denies having any homicidal ideation intent or plan. Denies any suicidal ideations intent or plan Perceptions: Patient denies any visual hallucinations and denies any auditory hallucinations Though content/process: There is no evidence of any delusional thought content and thought process is linear and goal-directed. Focus on discharge. Memory and concentration: AOX3, grossly intact for the purposes of this session. Judgment and insight: Improving mildly Assessment Major depressive disorder, without psychotic features Anxiety disorder unspecified Plan: -Patient is admitted under voluntary status to MHU for stabilization of psychiatric symptoms and safety. Patient has signed adult voluntary form and medication consent and is placed in patient's chart. -Medications : Continue Zoloft 50 mg daily for mood/anxiety, increase as tolerated/needed over the weekend. Decrease melatonin to 4 mg daily at bedtime for sleep. -Ativan and Haldol PRN for agitation/aggression -Patient was informed of the risks, benefits and side effects of the medication and patient verbally consented to taking the medications. Patient signed med consent form and was placed in chart. -Internal Medicine consult to perform medical evaluation and physical. -NRT - not needed as patient does not smoke -SW on board for discharge planning. Encourage patient to participate in groups to work on coping skills. The patient continues to improve over the weekend and likely discharge Thursday. Patient does have a gun at home.
[2022-09-06] MEDS: MELATONIN 1 MG TAB PO SCH (20:31)
[2022-09-07] MEDS: PANTOPRAZOLE 40 MG TABLET PO SCH (08:31)
[2022-09-07] MEDS: ASCORBIC ACID 500 MG TAB PO SCH (08:31)
[2022-09-07] MEDS: SERTRALINE 50 MG TAB PO SCH (08:32)
[2022-09-07] MEDS: LISINOPRIL-HCTZ 20-25 MG 1 EACH TAB PO SCH (08:32)
[2022-09-07] MEDS: MULTIVITAMINS, THERA 1 EACH TAB PO SCH (08:32)
--- NOTE | 2022-09-07 17:56 | P.PN ---
Progress Note - Text Progress Note Date: 09/07/22 Interval History: Patient was seen in the interview room and was directable and agreeable to speak with story writer in the office. He is brighter and says he has been feeling slightly better with the medications. He discussed several negative aspects of his life including his 's . He reports that he has been feeling better emotionally [place] He is more future oriented and is interested in returning back to work. At this time patient denies any suicidal or homicidal ideations, intent or plan. Patient denies any auditory, visual hallucinations and denies any paranoia or delusions. He states that he no longer has intermittent anxiety with Zoloft. He reports good sleep and less sedation with current melatonin dose. Patient denies side effects from the medications and has been compliant with meds. Mental Status Exam: General Appearance: Patient appears to be short in stature, overweight, wearing glasses, stated age is alert, directable, and attempts to cooperate. Patient appears to have fair hygiene and grooming. Behavior: Patient is seated without any agitated behavior. Attempts to cooperate. Speech: Patient's speech is fluent and hyperverbal Mood/Affect: Patient reports their mood is euthymic, affect is congruent Suicidality/Homicidality: Patient denies having any homicidal ideation intent or plan. Denies any suicidal ideations intent or plan Perceptions: Patient denies any visual hallucinations and denies any auditory hallucinations Though content/process: There is no evidence of any delusional thought content and thought process is linear and goal-directed. Focus on discharge. Memory and concentration: AOX3, grossly intact for the purposes of this session. Judgment and insight: Improving mildly Assessment Major depressive disorder, without psychotic features Anxiety disorder unspecified Plan: -Patient is admitted under voluntary status to MHU for stabilization of psychiatric symptoms and safety. Patient has signed adult voluntary form and medication consent and is placed in patient's chart. -Medications : Continue Zoloft 50 mg daily for mood/anxiety, increase as tolerated/needed over the weekend. Continue melatonin 4 mg daily at bedtime for sleep. -Ativan and Haldol PRN for agitation/aggression -Patient was informed of the risks, benefits and side effects of the medication and patient verbally consented to taking the medications. Patient signed med consent form and was placed in chart. -Internal Medicine consult to perform medical evaluation and physical. -NRT - not needed as patient does not smoke -SW on board for discharge planning. Encourage patient to participate in groups to work on coping skills. The patient continues to improve over the weekend and likely discharge Thursday. Patient does have a gun at home.
[2022-09-07] MEDS: MELATONIN 1 MG TAB PO SCH (20:43)
[2022-09-08 06:46] VITALS: BP 116/70; PULSE 57; TEMP 98.1
[2022-09-08] MEDS: PANTOPRAZOLE 40 MG TABLET PO SCH (08:22)
[2022-09-08] MEDS: MULTIVITAMINS, THERA 1 EACH TAB PO SCH (08:22)
[2022-09-08] MEDS: SERTRALINE 50 MG TAB PO SCH (08:23)
[2022-09-08] MEDS: ASCORBIC ACID 500 MG TAB PO SCH (08:23)
[2022-09-08] MEDS: LISINOPRIL-HCTZ 20-25 MG 1 EACH TAB PO SCH (09:21)
--- NOTE | 2022-09-08 11:15 | P.DS ---
Providers Date of admission: 09/04/22 20:47 Expected date of discharge: 09/08/22 Attending physician: Leonid Byers MD Consults: 09/04/22 20:58 Consult Physician Routine Consulting Provider: Alexandria Chau Consult Reason/Comments: Medical H&P Do you want consulting provider notified?: Yes Primary care physician: Lonny Hobson - Discharge Diagnosis(es) (1) Major depressive disorder without psychotic features Current Visit: Yes Status: Acute Priority: High (2) Anxiety disorder Current Visit: Yes Status: Acute Priority: High Hospital Course: Admission HPI: Admission note was completed by parts data writer "Patient is a 52-year-old male, 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 Patient presented to the hospital yesterday sent by his PCP Dr. Carlos. Patient was assessed in the ER and was noted to have suicidal thoughts that were increasing in severity and also depression recently. Patient does have a history of depression. Patient claimed in the ER that his about 2 years ago. His UDS was negative. Patient was admitted voluntarily mental health unit. Patient is on Paxil currently since 2003 he states. He states that he vital through cancer on his for quite some time and claims that she from both cancer and covid. He states that this occurred 2 years ago and states that the anniversary of her was a few days ago. He states that he was having suicidal thoughts that were more severe. He claims that he does feel loneliness, hopelessness and also depression. He also claims that he is feeling anxious. He states that he is "tired of the negativity in the world" and claims that "sometimes ask God to teach me". He states that his sleep is then fair and appetite is been on and off. He has been fairly compliant with his Paxil. Patient denies any current suicidal or homicidal ideations intent or plan. At this time patient denies any auditory or visual hallucinations. Patient denies any flight of ideas racing thoughts and increased in goal directed behavior. Patient admits to using now recreational drugs or cigarettes. Drinks occasional alcohol." Hospital course: Upon admission to the unit patient was directable and agreeable to commence treatment and signed adult voluntary form . Patient got along well with other patients on the unit and followed unit protocol. Patient was compliant with the medications and denied any side effects throughout hospital course. Patient was discontinued off of Paxil and replace with Zoloft 50 mg daily for mood/anxiety, melatonin daily at bedtime for sleep. Patient spoke of his stressors and engaged in therapy both group and individual. Patient was also seen by medical team for history and physical exam. Throughout the course of the hospitalization patient gradually improved with regards to mood, anxiety, sleep and became more future oriented with improved insight and judgment. On the day of discharge patient denied any suicidal or homicidal ideations intent or plan denied any auditory or visual hallucinations. Patient endorsed wanting to live for his health and also his kids. The patient claims that he does have firearms but they have been stored/locked away. Patient denied any paranoia and did not endorse any delusions. Patient does not have a significant history of substance abuse and was counseled on abstaining from all substances including alcohol and marijuana. Patient was also counseled on the medications and need for regular compliance and was encouraged to follow-up with their outpatient appointment for mental health and also for primary care. Prior to discharge a family meeting will be arranged by nephrology social worker to answer any questions and ensure safety upon discharge. Mental status exam: General Appearance: Patient appears to be overweight, short, wearing glasses, stated age is alert, pleasant, and cooperative. Patient is in no acute distress and has improved hygiene and grooming Behavior: Patient is calmly seated without any agitated behavior. Speech: Patient's speech is fluent and nonpressured. Mood/Affect: Patient reports their mood is "good", affect is congruent and euthymic. Suicidality/Homicidality: Patient denies having any suicidal or homicidal ideation intent or plan. Perceptions: Patient denies any auditory or visual hallucinations. Though content/process: There is no evidence of any delusional thought content and thought process is linear and goal-directed. more future oriented Memory and concentration: AOX3, grossly intact for the purposes of this session. Can spell "WORLD" backwards correctly. Judgment and insight: improved with guarded prognosis Impression: Major depressive disorder, without psychotic features Anxiety disorder unspecified Plan: -Continue with discharge today as patient has improved and stabilized psychiatrically and is not currently an imminent threat to himself and/or others. -Continue medications: Zoloft 50 mg daily for mood/anxiety, melatonin daily at bedtime when necessary for sleep. -Patient was counseled on the need for medication compliance and appropriate follow-up at mental health and also primary care for medical issues. Patient verbalized understanding and agreed. -Social work to help arrange for patient's discharge today and he will be following up [facility] counseling Social work also to arrange for patients follow up appointments for psychiatric care along with follow up with primary care provider. -Patient counseled on abstaining from recreational drugs and marijuana and alcohol. Was informed/educated on the adverse effects on their physical and mental health. Patient verbally agreed and understood. -Patient was instructed to return to the hospital or seek immediate medical care if their psychiatric or medical symptoms do worsen or reoccur. Allergies Allergy/AdvReac Type Severity Reaction Status Date / Time diazepam [From Valium] AdvReac Hallucinati Verified 09/04/22 17:02 ons Laboratory Results WBC 3.8 k/uL (3.8-10.6) 09/05/22 06:54 RBC 4.73 m/uL (4.30-5.90) 09/05/22 06:54 Hgb 16.0 gm/dL (13.0-17.5) 09/05/22 06:54 Hct 45.9 % (39.0-53.0) 09/05/22 06:54 MCV 97.0 fL (80.0-100.0) 09/05/22 06:54 MCH 33.7 pg (25.0-35.0) 09/05/22 06:54 MCHC 34.8 g/dL (31.0-37.0) 09/05/22 06:54 RDW 12.4 % (11.5-15.5) 09/05/22 06:54 Plt Count 144 k/uL (150-450) L 09/05/22 06:54 MPV 7.1 09/05/22 06:54 Neutrophils % (Manual) 59 % 09/05/22 06:54 Lymphocytes % (Manual) 29 % 09/05/22 06:54 Monocytes % (Manual) 10 % 09/05/22 06:54 Eosinophils % (Manual) 2 % 09/05/22 06:54 Neutrophils # (Manual) 2.24 k/uL (1.3-7.7) 09/05/22 06:54 Lymphocytes # (Manual) 1.10 k/uL (1.0-4.8) 09/05/22 06:54 Monocytes # (Manual) 0.38 k/uL (0-1.0) 09/05/22 06:54 Eosinophils # (Manual) 0.08 k/uL (0-0.7) 09/05/22 06:54 Nucleated RBCs 0 /100 WBC (0-0) 09/05/22 06:54 Manual Slide Review Performed 09/05/22 06:54 RBC Morphology Normal 09/05/22 06:54 Sodium 140 mmol/L (137-145) 09/05/22 06:54 Potassium 4.1 mmol/L (3.5-5.1) 09/05/22 06:54 Chloride 103 mmol/L (98-107) 09/05/22 06:54 Carbon Dioxide 31 mmol/L (22-30) H 09/05/22 06:54 Anion Gap 6 mmol/L 09/05/22 06:54 BUN 22 mg/dL (9-20) H 09/05/22 06:54 Creatinine 0.88 mg/dL (0.66-1.25) 09/05/22 06:54 Est GFR (CKD-EPI)AfAm >90 (>60 ml/min/1.73 sqM) 09/05/22 06:54 Est GFR (CKD-EPI)NonAf >90 (>60 ml/min/1.73 sqM) 09/05/22 06:54 Glucose 118 mg/dL (74-99) H 09/05/22 06:[address] Glu mg/dL 124 09/05/22 06:54 Hemoglobin A1c 5.9 % (0.0-6.0) 09/05/22 06:54 Calcium 9.1 mg/dL (8.4-10.2) 09/05/22 06:54 Total Bilirubin 0.9 mg/dL (0.2-1.3) 09/05/22 06:54 Conjugated Bilirubin 0.0 mg/dL (0.0-0.3) 09/05/22 06:54 Unconjugated Bilirubin 0.6 mg/dL (0.0-1.1) 09/05/22 06:54 Delta Bilirubin 0.3 mg/dL (0.0-0.2) H 09/05/22 06:54 AST 48 U/L (17-59) 09/05/22 06:54 ALT 57 U/L (4-49) H 09/05/22 06:54 Alkaline Phosphatase 55 U/L (38-126) 09/05/22 06:54 Total Protein 6.7 g/dL (6.3-8.2) 09/05/22 06:54 Albumin 4.3 g/dL (3.5-5.0) 09/05/22 06:54 Triglycerides 106.00 mg/dL (0.00-149.00) 09/05/22 06:54 Cholesterol 183.00 mg/dL (0.00-200.00) 09/05/22 06:54 LDL Cholesterol, Calc 97.6 mg/dL (0.0-131.0) 09/05/22 06:54 VLDL Cholesterol, Calc 21.20 mg/dL (5.00-40.00) 09/05/22 06:54 HDL Cholesterol 64.20 mg/dL (40.00-60.00) H 09/05/22 06:54 Cholesterol/HDL Ratio 2.85 Ratio 09/05/22 06:54 TSH 0.598 mIU/L (0.465-4.680) 09/05/22 06:54 Urine Opiates Screen Not Detected (NotDetected) 09/04/22 13:41 Ur Oxycodone Screen Not Detected (NotDetected) 09/04/22 13:41 Urine Methadone Screen Not Detected (NotDetected) 09/04/22 13:41 Ur Propoxyphene Screen Not Detected (NotDetected) 09/04/22 13:41 Ur Barbiturates Screen Not Detected (NotDetected) 09/04/22 13:41 U Tricyclic Antidepress Not Detected (NotDetected) 09/04/22 13:41 Ur Phencyclidine Scrn Not Detected (NotDetected) 09/04/22 13:41 Ur Amphetamines Screen Not Detected (NotDetected) 09/04/22 13:41 U Methamphetamines Scrn Not Detected (NotDetected) 09/04/22 13:41 U Benzodiazepines Scrn Not Detected (NotDetected) 09/04/22 13:41 Urine Cocaine Screen Not Detected (NotDetected) 09/04/22 13:41 U Marijuana (THC) Screen Not Detected (NotDetected) 09/04/22 13:41 Coronavirus (PCR) Not Detected (Not Detectd) 09/04/22 16:29 Vital Signs Temp 98.1 F 09/08/22 06:26 Pulse 57 L 09/08/22 06:26 Resp 16 09/08/22 06:26 BP 116/70 09/08/22 06:26 Pulse Ox 98 09/08/22 06:26 FiO2 Patient Condition at Discharge: Stable Plan - Discharge Summary Discharge Rx Participant: Yes New Discharge Prescriptions: New Melatonin 4 mg PO HS tab Sertraline [Zoloft] 50 mg PO DAILY 30 Days tab Continue Lisinopril-Hctz 20-25 mg [Zestoretic 20-25] 1 tab PO DAILY@0400 Multivit-Min/FA/Lycopen/Lutein [Centrum Silver Tablet] 1 tab PO DAILY@0400 Ascorbic Acid [Vitamin C] 1,000 mg PO DAILY@0400 Esomeprazole Magnesium [NexIUM 24Hr] 20 mg PO DAILY@0400 Discontinued PARoxetine [Paxil] 20 mg PO BID@0400,1800 Discharge Medication List Lisinopril-Hctz 20-25 mg [Zestoretic 20-25] 1 tab PO DAILY@0400 01/05/18 [History] Ascorbic Acid [Vitamin C] 1,000 mg PO DAILY@0400 09/04/22 [History] Esomeprazole Magnesium [NexIUM 24Hr] 20 mg PO DAILY@0400 09/04/22 [History] Multivit-Min/FA/Lycopen/Lutein [Centrum Silver Tablet] 1 tab PO DAILY@0400 09/04/22 [History] Melatonin 4 mg PO HS tab 09/08/22 [Rx] Sertraline [Zoloft] 50 mg PO DAILY 30 Days tab 09/08/22 [Rx] Follow up Appointment(s)/Referral(s): [facility] [Outside] - 09/30/22 9:00 am ( open already soonest appt is 09/30 @ 09:00 with Ever Guerra (also on cancellation list) ) Joce Mukherjee MD [Primary Care Provider] - 1-2 days Patient Instructions/Handouts: Depression (DC) Activity/Diet/Wound Care/Special Instructions: Avoid the use of street drugs and alcohol. Take all prescriptions as prescribed. When you are in need of refills on your medications, please contact your medical provider and/or outpatient psychiatrist to have this done. Please go to scheduled outpatient appointment for aftercare treatment. If symptoms return or become worse, call the crisis line at and/or go to the nearest emergency room for evaluation. Discharge Disposition: HOME SELF-CARE
== END 2022-09-08 11:40 | disposition home or self-care (01) | DRG 881 ==
LOC: EC 12:43 → 3MHU 20:47
PROVIDERS: ADMIT Psychiatry & Neurology Psychiatry; ATTEND Psychiatry & Neurology Psychiatry
DX: F32.9 Major depressive disorder, single episode, unspecified (principal); R45.851 Suicidal ideations; F41.9 Anxiety disorder, unspecified; I10 Essential (primary) hypertension; J45.909 Unspecified asthma, uncomplicated; K21.9 Gastro-esophageal reflux disease without esophagitis; Z20.822 Contact with and (suspected) exposure to COVID-19; Z79.899 Other long term (current) drug therapy; Z87.891 Personal history of nicotine dependence
CPT/HCPCS: 80053; 80061; 80306; 82075; 82248; 83036; 84443; 85025; 87635; 99285

== ENCOUNTER → 2022-09-19 | Outpatient (CLI) | payer BC ==
--- NOTE | 2022-09-19 11:40 | XR ---
EXAMINATION TYPE: XR chest 2V DATE OF EXAM: 09/19/2022 COMPARISON: None HISTORY: 52-year-old male R05, cough TECHNIQUE: Frontal and lateral views FINDINGS: Heart normal size. Aorta and pulmonary vasculature within normal limits. Mild hyperinflation. Some as ymmetry along the left first rib, possible old posttraumatic etiology. No consolidation or pleural ef fusion. IMPRESSION: Correlate for underlying COPD. No acute process seen.
== END | disposition home or self-care (01) ==
LOC: RADXRMAIN 09:47
PROVIDERS: ATTEND Internal Medicine
DX: J44.9 Chronic obstructive pulmonary disease, unspecified (principal); R05.9 Cough, unspecified
CPT/HCPCS: 71046

== ENCOUNTER → 2024-02-18 | Outpatient (CLI) | payer BC ==
--- NOTE | 2024-02-18 14:53 | US ---
EXAMINATION TYPE: US liver DATE OF EXAM: 02/18/2024 COMPARISON: US 2020 CLINICAL INDICATION: Male, 53 years old with history of R74.01 ELEVATED LFT'S; TECHNIQUE: Multiple sonographic images of the right upper quadrant are obtained. FINDINGS: EXAM MEASUREMENTS: Liver Length: 16.4 cm Gallbladder Wall: 0.2 cm CBD: 0.3 cm Right Kidney: 10.6 x 4.6 x 6.0 cm Pancreas: visualized portions wnl, limited by overlying midline bowel gas Liver: increased attenuation, increased echogenicity, decreased visualization of vessels suggestive of fatty infiltrate Gallbladder: wnl Evidence for sonographic Gregory's sign: no CBD: visualized portions wnl, limited by overlying bowel gas Right Kidney: wnl IMPRESSION: 1. No change in the liver size and fatty infiltration of the liver. 2. Limited evaluation of the pancreas. 3. No new abnormality seen.
== END | disposition home or self-care (01) ==
LOC: RADUSWWP 06:54
PROVIDERS: ATTEND Family Medicine
DX: K76.0 Fatty (change of) liver, not elsewhere classified (principal); R74.01 Elevation of levels of liver transaminase levels
CPT/HCPCS: 76705